=== PATIENT | female | born 2000 | race Two or more races ===

== ENCOUNTER 2022-03-08 18:54 | Observation (INO) | payer MEDICAID, OTHER ==
[2022-03-08] MEDS ORDERED: PREN-96 PO (22:08)
== END 2022-03-08 22:30 | disposition home or self-care (01) ==
LOC: LDRP 18:54
PROVIDERS: ADMIT Obstetrics & Gynecology; ATTEND Obstetrics & Gynecology
DX: O62.9 Abnormality of forces of labor, unspecified (principal); O48.0 Post-term pregnancy; O26.893 Other specified pregnancy related conditions, third trimester; N89.8 Other specified noninflammatory disorders of vagina; Z3A.40 40 weeks gestation of pregnancy
CPT/HCPCS: 59025; 76805; 81002; 94760; G0378